=== PATIENT | male | born 1965 | race Caucasian/White ===

== ENCOUNTER 2018-01-28 03:13 | Inpatient (IN) | payer OTHER ==
[~2018-01-28] VITALS: Ht 177.8 cm; Wt 65.0 kg
[~2018-01-28 03:13] MED LIST: ALBU2.5V5 INH; ALBU90I INH; ALBU90OI INH; FLUSAL2505 IH; FLUSAL2505 INH; HYDACE5 PO; PERM5TC TOP; PRED10 PO; RXHYD5325 PO; TIOT18 INH; VARE1 PO; ZINC15G
[2018-01-28 03:23] LABS: BASOPHILS PERCENT AUTO 1 % (0-2); EOSINOPHILS ABSOLUTE AUTO 0.56 K/mm3 (0.00-0.68); EOSINOPHILS PERCENT AUTO 6 % (0-6); Hematocrit 42.2 % (37.0-53.0); Hemoglobin 14.1 g/dL (13.5-17.5); IMMATURE GRAN ABSOLUTE AUTO 0.02 K/mm3 (0.00-0.10); IMMATURE GRAN PERCENT AUTO 0 % (0-1); LYMPHOCYTES PERCENT AUTO 44 % (21-46); MONOCYTES ABSOLUTE AUTO 0.87 K/mm3 (0.16-1.47); MONOCYTES PERCENT AUTO 10 % (4-13); Mean Corpuscular HGB 33.3 pg (26.0-34.0); Mean Corpuscular HGB Conc 33.4 g/dL (31.5-36.5); Mean Corpuscular Volume 100 fL (80-100); Mean Platelet Volume 9.8 fL (9.1-12.4); NEUTROPHILS ABSOLUTE AUTO 3.46 K/mm3 (1.96-9.15); NEUTROPHILS PERCENT AUTO 39 % (41-73); Platelet Count 229 K/mm3 (150-400); RDW Coefficient Variation 12.8 % (11.7-14.2); RDW Standard Deviation 47.1 fL (35.1-46.3); Red Blood Cell Count 4.23 M/mm3 (4.30-5.90); White Blood Cell Count 8.91 K/mm3 (4.00-11.30)
[2018-01-28 03:27] LABS: PCO2 Arterial 53.7 mmHg (35-45); PO2 Arterial 77.7 mmHg (80-100); pH Blood Arterial 7.28 (7.35-7.45)
[2018-01-28] MEDS ORDERED: Ipratr-Albuterol3 ML INH (03:38)
[2018-01-28 03:43] LABS: Alanine Aminotransfer (ALT/SGP 24 U/L (12-78); Albumin, Blood 3.6 g/dL (3.4-5.0); Alk Phos 61 U/L (50-136); Anion Gap 9 mmol/L (6-16); Aspartate Aminotrans (AST/SGOT 27 U/L (12-37); Bilirubin, Total 0.1 mg/dL (0.1-1.0); Blood Urea Nitrogen 9 mg/dL (8-24); Bun/Creatinine Ratio 12.9 (12.0-20.0); CO2, Blood 28 mmol/L (21-32); Calcium, Blood 8.3 mg/dL (8.5-10.1); Chloride, Blood 102 mmol/L (98-108); Globulin, Blood 3.5 g/dL (2.2-4.0); Glomerular Filtration Rate >60 (60-); Glucose, Blood 116 mg/dL (70-99); Sodium, Blood 139 mmol/L (136-145); Total Protein, Blood 7.1 g/dL (6.4-8.2); Troponin I 0.019 ng/mL (0.000-0.040)
[2018-01-28] MEDS ORDERED: METF500 PO (05:52)
[2018-01-28] MEDS ORDERED: FLUO10 PO (05:53)
[2018-01-28 09:15] LABS: PCO2 Arterial 42.3 mmHg (35-45); PO2 Arterial 62.7 mmHg (80-100); pH Blood Arterial 7.39 (7.35-7.45)
[2018-01-29 04:58] LABS: BASOPHILS ABSOLUTE AUTO 0.01 K/mm3 (0.00-0.23); BASOPHILS PERCENT AUTO 0 % (0-2); EOSINOPHILS PERCENT AUTO 0 % (0-6); Hematocrit 40.3 % (37.0-53.0); Hematocrit 40.9 % (37.0-53.0); Hemoglobin 13.7 g/dL (13.5-17.5); Hemoglobin 13.8 g/dL (13.5-17.5); IMMATURE GRAN ABSOLUTE AUTO 0.16 K/mm3 (0.00-0.10); IMMATURE GRAN PERCENT AUTO 1 % (0-1); LYMPHOCYTES ABSOLUTE AUTO 0.55 K/mm3 (0.84-5.20); LYMPHOCYTES PERCENT AUTO 4 % (21-46); MONOCYTES ABSOLUTE AUTO 0.38 K/mm3 (0.16-1.47); MONOCYTES PERCENT AUTO 3 % (4-13); Mean Corpuscular HGB 32.7 pg (26.0-34.0); Mean Corpuscular HGB 32.9 pg (26.0-34.0); Mean Corpuscular HGB Conc 33.5 g/dL (31.5-36.5); Mean Corpuscular HGB Conc 34.2 g/dL (31.5-36.5); Mean Corpuscular Volume 98 fL (80-100); Mean Platelet Volume 10.2 fL (9.1-12.4); Mean Platelet Volume 10.3 fL (9.1-12.4); NEUTROPHILS ABSOLUTE AUTO 13.23 K/mm3 (1.96-9.15); NEUTROPHILS ABSOLUTE AUTO 13.47 K/mm3 (1.96-9.15); NEUTROPHILS PERCENT AUTO 92 % (41-73); NEUTROPHILS PERCENT AUTO 93 % (41-73); Platelet Count 211 K/mm3 (150-400); Platelet Count 225 K/mm3 (150-400); RDW Coefficient Variation 12.7 % (11.7-14.2); RDW Coefficient Variation 12.8 % (11.7-14.2); RDW Standard Deviation 45.5 fL (35.1-46.3); RDW Standard Deviation 45.8 fL (35.1-46.3); Red Blood Cell Count 4.19 M/mm3 (4.30-5.90); White Blood Cell Count 14.27 K/mm3 (4.00-11.30); White Blood Cell Count 14.57 K/mm3 (4.00-11.30)
[2018-01-29 05:07] LABS: Mean Corpuscular Volume 96 fL (80-100)
[2018-01-29 05:24] LABS: Alanine Aminotransfer (ALT/SGP 23 U/L (12-78); Albumin, Blood 3.5 g/dL (3.4-5.0); Albumin/Globulin Ratio 1.1 (0.8-1.8); Alk Phos 54 U/L (50-136); Anion Gap 7 mmol/L (6-16); Aspartate Aminotrans (AST/SGOT 19 U/L (12-37); Bilirubin, Total 0.4 mg/dL (0.1-1.0); Blood Urea Nitrogen 13 mg/dL (8-24); Bun/Creatinine Ratio 21.8 (12.0-20.0); CO2, Blood 27 mmol/L (21-32); Calcium, Blood 9.2 mg/dL (8.5-10.1); Chloride, Blood 102 mmol/L (98-108); Globulin, Blood 3.2 g/dL (2.2-4.0); Glomerular Filtration Rate >60 (60-); Glucose, Blood 157 mg/dL (70-99); Potassium, Blood 4.1 mmol/L (3.5-5.5); Sodium, Blood 136 mmol/L (136-145); Total Protein, Blood 6.7 g/dL (6.4-8.2)
[2018-01-29 05:25] LABS: Anion Gap 7 mmol/L (6-16); Blood Urea Nitrogen 13 mg/dL (8-24); Bun/Creatinine Ratio 21.1 (12.0-20.0); CO2, Blood 27 mmol/L (21-32); Calcium, Blood 9.1 mg/dL (8.5-10.1); Chloride, Blood 101 mmol/L (98-108); Creatinine, Blood 0.62 mg/dL (0.60-1.20); Glomerular Filtration Rate >60 (60-); Glucose, Blood 159 mg/dL (70-99); Potassium, Blood 4.1 mmol/L (3.5-5.5); Sodium, Blood 135 mmol/L (136-145)
[2018-01-30] MEDS ORDERED: PRED20 PO (12:03)
== END 2018-01-30 12:54 | disposition home or self-care (01) | DRG 189 ==
LOC: ER 03:13 → PCU 04:04 → MEDS 05:32 → PCU 05:36 → MEDS 21:43
PROVIDERS: Emergency Medicine; Internal Medicine
PROC: 5A09357 Assistance with Respiratory Ventilation, Less than 24 Consecutive Hours, Continuous Positive Airway Pressure (ICD-10-PCS; principal; 2018-01-28)
DX: J96.01 Acute respiratory failure with hypoxia (principal); J44.1 Chronic obstructive pulmonary disease with (acute) exacerbation; J44.0 Chronic obstructive pulmonary disease with (acute) lower respiratory infection; J20.9 Acute bronchitis, unspecified; F17.200 Nicotine dependence, unspecified, uncomplicated; Z79.51 Long term (current) use of inhaled steroids; Z79.899 Other long term (current) drug therapy
CPT/HCPCS: 36415; 36600; 71045; 80048; 80053; 82803; 84484; 85025; 93005; 93010; 94640; 94644; 94760; 94761; 96374; 99285; J2930

== ENCOUNTER → 2018-06-17 | Outpatient (CLI) | payer OTHER ==
[~2018-06-17] MED LIST changes: +FLUO10 PO; +Ipratr-Albuterol3 ML INH; +METF500 PO; +PRED20 PO
== END | disposition home or self-care (01) ==
LOC: LAB SHORT 12:26 → LAB EV 12:26
DX: R51 Headache (principal)
CPT/HCPCS: 85651; 86140

== ENCOUNTER → 2019-07-26 | Outpatient (CLI) | payer OTHER ==
[2019-07-26 12:34] LABS: BASOPHILS ABSOLUTE AUTO 0.05 K/mm3 (0.00-0.23); BASOPHILS PERCENT AUTO 0 % (0-2); EOSINOPHILS ABSOLUTE AUTO 0.14 K/mm3 (0.00-0.68); EOSINOPHILS PERCENT AUTO 1 % (0-6); Hematocrit 43.2 % (37.0-53.0); Hemoglobin 15.2 g/dL (13.5-17.5); IMMATURE GRAN ABSOLUTE AUTO 0.07 K/mm3 (0.00-0.10); IMMATURE GRAN PERCENT AUTO 1 % (0-1); LYMPHOCYTES ABSOLUTE AUTO 1.75 K/mm3 (0.84-5.20); LYMPHOCYTES PERCENT AUTO 13 % (21-46); MONOCYTES ABSOLUTE AUTO 1.08 K/mm3 (0.16-1.47); MONOCYTES PERCENT AUTO 8 % (4-13); Mean Corpuscular HGB 34.1 pg (26.0-34.0); Mean Corpuscular HGB Conc 35.2 g/dL (31.5-36.5); Mean Corpuscular Volume 97 fL (80-100); Mean Platelet Volume 9.8 fL (9.1-12.4); NEUTROPHILS ABSOLUTE AUTO 10.66 K/mm3 (1.96-9.15); NEUTROPHILS PERCENT AUTO 78 % (41-73); Platelet Count 284 K/mm3 (150-400); RDW Coefficient Variation 12.7 % (11.7-14.2); RDW Standard Deviation 45.6 fL (35.1-46.3); Red Blood Cell Count 4.46 M/mm3 (4.30-5.90); White Blood Cell Count 13.75 K/mm3 (4.00-11.30)
[2019-07-26 12:44] LABS: Alanine Aminotransfer (ALT/SGP 31 U/L (12-78); Albumin, Blood 3.8 g/dL (3.4-5.0); Alk Phos 107 U/L (40-126); Anion Gap 8 mmol/L (6-16); Aspartate Aminotrans (AST/SGOT 36 U/L (12-37); Bilirubin, Total 0.4 mg/dL (0.1-1.0); Blood Urea Nitrogen 8 mg/dL (8-24); Bun/Creatinine Ratio 9.9 (12.0-20.0); CO2, Blood 29 mmol/L (21-32); Calcium, Blood 9.5 mg/dL (8.5-10.1); Chloride, Blood 98 mmol/L (98-108); Creatinine, Blood 0.81 mg/dL (0.60-1.20); Globulin, Blood 3.9 g/dL (2.2-4.0); Glomerular Filtration Rate >60 (60-); Glucose, Blood 83 mg/dL (70-99); Potassium, Blood 4.8 mmol/L (3.5-5.5); Sodium, Blood 135 mmol/L (136-145); Total Protein, Blood 7.7 g/dL (6.4-8.2)
[2019-07-26 12:45] LABS: Troponin I <0.017 ng/mL (0.000-0.040)
== END | disposition home or self-care (01) ==
LOC: LAB SHORT 12:26 → LAB EV 12:26
PROVIDERS: Physician Assistant
DX: R07.89 Other chest pain (principal)
CPT/HCPCS: 80053; 84484; 85025

== ENCOUNTER 2024-09-09 12:07 | Emergency (ER) | payer OTHER ==
[~2024-09-09] VITALS: Ht 177.8 cm; Wt 59.9 kg
[2024-09-09] MEDS ORDERED: DiphenhydrAMINE HCl 50 MG/ML 1ML Vial IV ONE (12:35)
[2024-09-09] MEDS ORDERED: Famotidine 10 MG/ML 2ML Vial IV ONE (12:35)
[2024-09-09] MEDS ORDERED: Dexamethasone Sod Phos 10 MG/ML 1ML VIAL IV ONE (12:35)
[2024-09-09] MEDS ORDERED: BENADRYL25 M1 PO (13:20)
[2024-09-09] MEDS ORDERED: PRED20 PO (13:20)
[2024-09-09] MEDS ORDERED: FAMO20 PO (13:20)
[2024-09-09 13:33] VITALS: BP 109/86
[2024-09-09] MEDS ORDERED: EPIPEN0.3 MG/0.1 IM (13:37)
== END 2024-09-09 13:55 | disposition home or self-care (01) ==
LOC: ER 12:07
DX: T78.40XA Allergy, unspecified, initial encounter (principal); J44.89 Other specified chronic obstructive pulmonary disease; Z87.891 Personal history of nicotine dependence; Z79.52 Long term (current) use of systemic steroids; Z79.51 Long term (current) use of inhaled steroids; Z79.899 Other long term (current) drug therapy
CPT/HCPCS: 96374; 96375; 99283-25; J1100; J1200

== ENCOUNTER → 2025-05-24 | Outpatient (CLI) | payer OTHER ==
[~2025-05-24] MED LIST changes: +BENADRYL25 M1 PO; +EPIPEN0.3 MG/0.1 IM; +FAMO20 PO
[2025-05-24 13:35] LABS: Anion Gap 12.0 mmol/L (3-11); Blood Urea Nitrogen 15.0 mg/dL (8-24); CO2, Blood 26.0 mmol/L (21-32); Calcium, Blood 9.5 mg/dL (8.5-10.1); Chloride, Blood 94.0 mmol/L (98-108); Creatinine, Blood 0.54 mg/dL (0.60-1.20); Glucose, Blood 142.0 mg/dL (70-99); Potassium, Blood 4.1 mmol/L (3.5-5.5); Sodium, Blood 128.0 mmol/L (136-145)
== END ==
LOC: LAB 12:39 → LAB SHORT 12:39
PROVIDERS: Internal Medicine Hematology & Oncology
DX: C34.02 Malignant neoplasm of left main bronchus (principal)
CPT/HCPCS: 80048

== ENCOUNTER 2025-07-16 17:16 | Inpatient (IN) | payer OTHER ==
[~2025-07-16] VITALS: Ht 167.6 cm; Wt 61.2 kg
[~2025-07-16 17:16] MED LIST changes: +SPIRIVA RESPIMAT4 G3 INH; -TIOT18 INH
[2025-07-16] MEDS ORDERED: NS 1,000 ML IV SCH (17:35)
[2025-07-16 18:26] LABS: BASOPHILS ABSOLUTE AUTO 0.03 K/mm3 (0.00-0.23); BASOPHILS PERCENT AUTO 1 % (0-2); EOSINOPHILS ABSOLUTE AUTO 0.23 K/mm3 (0.00-0.68); EOSINOPHILS PERCENT AUTO 5 % (0-6); Hematocrit 27.7 % (37.0-53.0); Hemoglobin 9.7 g/dL (13.5-17.5); IMMATURE GRAN ABSOLUTE AUTO 0.02 K/mm3 (0.00-0.10); IMMATURE GRAN PERCENT AUTO 0 % (0-1); LYMPHOCYTES ABSOLUTE AUTO 0.28 K/mm3 (0.84-5.20); LYMPHOCYTES PERCENT AUTO 6 % (21-46); MONOCYTES ABSOLUTE AUTO 0.85 K/mm3 (0.16-1.47); MONOCYTES PERCENT AUTO 17 % (4-13); Mean Corpuscular HGB Conc 35.0 g/dL (31.5-36.5); Mean Corpuscular Volume 92 fL (80-100); NEUTROPHILS ABSOLUTE AUTO 3.60 K/mm3 (1.96-9.15); NEUTROPHILS PERCENT AUTO 72 % (41-73); NRBC ABSOLUTE 0.00 K/mm3 (0.00-0.02); NRBC Auto 0.0 /100 WBC (0.0-0.2); Platelet Count 245 K/mm3 (150-400); RDW Coefficient Variation 17.2 % (11.7-14.2); RDW Standard Deviation 56.5 fL (35.1-46.3)
[2025-07-16 18:46] LABS: Alanine Aminotransfer (ALT/SGP 19.0 U/L (12-78); Albumin, Blood 2.9 g/dL (3.4-5.0); Albumin/Globulin Ratio 0.8 (0.8-1.8); Anion Gap 10.0 mmol/L (3-11); Aspartate Aminotrans (AST/SGOT 14.0 U/L (12-37); Bilirubin, Total 0.5 mg/dL (0.1-1.0); Blood Urea Nitrogen 12.0 mg/dL (8-24); CO2, Blood 27.0 mmol/L (21-32); Calcium, Blood 9.2 mg/dL (8.5-10.1); Chloride, Blood 95.0 mmol/L (98-108); Creatinine, Blood 0.5 mg/dL (0.60-1.20); Globulin, Blood 3.8 g/dL (2.2-4.0); Glucose, Blood 127.0 mg/dL (70-99); Potassium, Blood 3.3 mmol/L (3.5-5.5); Sodium, Blood 129.0 mmol/L (136-145); Total Protein, Blood 6.7 g/dL (6.4-8.2)
[2025-07-16 18:47] LABS: Magnesium, Blood 1.7 mg/dL (1.6-2.4); Phosphorus, Blood 2.9 mg/dL (2.5-4.9)
[2025-07-16] MEDS ORDERED: CefTRIAXone Sodium 1,000 MG in NS 100 ML IV ONE (22:05)
[2025-07-16] MEDS ORDERED: Ipratropium/Albuterol SulF 2.5-0.5MG/3 ML Amp INH ONE (22:45)
[2025-07-16] MEDS ORDERED: Magnesium Hydroxide Conc 10 ML UDC PO PRN (23:15)
[2025-07-16] MEDS ORDERED: FLU VACC TS2025-26(6MOS UP)/PF 45 MCG/0.5 ML SYRINGE IM SCH (23:15)
[2025-07-16] MEDS ORDERED: Ipratropium/Albuterol SulF 2.5-0.5MG/3 ML Amp INH SCH (23:20)
[2025-07-16 23:27] LABS: IMMATURE RETIC FRACTION 19.80 % (2.3-16.0); RETIC HGB EQUIVALENT 28.70 pg (28.20-36.60); RETICULOCYTE ABSOLUTE 0.0972 M/mm3 (0.0200-0.1100); RETICULOCYTE COUNT PERCENT 3.22 % (0.50-2.50)
[2025-07-17] VITALS (7 sets, daily range): BP systolic 122–138; BP diastolic 76–93
[2025-07-17 00:41] LABS: Ferritin, Serum 752.0 ng/mL (26-388); Total Iron Binding Capacity 158.0 ug/dL (250-450)
[2025-07-17 01:54] LABS: Influenza A/2009-H1 Not Detected (NOT DETECT); SARS-Cov-2 (COVID-19), BioFire Not Detected (NOT DETECT)
[2025-07-17] MEDS ORDERED: OXYCONTIN10 MG PO (02:23)
[2025-07-17] MEDS ORDERED: SENN187 PO (02:23)
--- NOTE | 2025-07-17 03:25 | NUR ---
ARRIVAL TO PCU PT ARRIVED TO PCU ON A GURNEY FROM THE ED AT AROUND 0115. PT ARRIVED AND WAS ABLE TO TRANSFER TO PCU BED. ON 2L NC ON ARRIVAL SATTING >93% ARRIVED IN NO ACUTE DISTRESS, BREATHING EVEN AND UNLABORED. DURING HIS ASSESMENT PT DID HOWEVER DESAT TO THE LOW 80'S AND O2 WAS TURNED UP TO 7L FOR SOMETIME, PT SEEMS TO TAKE QUITE SOMETIME TO RECOVER. PT ALSO NOTED TO HAVE A PRODUCTIVE COUGH W/ THIN WHITE SPUTUM. TELE IN PLACE SHOWING SINUS TACH ON THE MONTIOR. PT DENIES CHEST PAIN AND PRESSURE. BED IN LOW, CALL LIGHT IN REACH.
[2025-07-17] MEDS ORDERED: Albuterol 2.5 MG/3 ML VIAL INH PRN (04:00)
[2025-07-17 04:36] LABS: BASOPHILS ABSOLUTE AUTO 0.03 K/mm3 (0.00-0.23); BASOPHILS PERCENT AUTO 1 % (0-2); EOSINOPHILS ABSOLUTE AUTO 0.22 K/mm3 (0.00-0.68); EOSINOPHILS PERCENT AUTO 5 % (0-6); Hematocrit 23.1 % (37.0-53.0); Hemoglobin 7.9 g/dL (13.5-17.5); IMMATURE GRAN ABSOLUTE AUTO 0.01 K/mm3 (0.00-0.10); IMMATURE GRAN PERCENT AUTO 0 % (0-1); LYMPHOCYTES ABSOLUTE AUTO 0.25 K/mm3 (0.84-5.20); LYMPHOCYTES PERCENT AUTO 6 % (21-46); MONOCYTES ABSOLUTE AUTO 0.77 K/mm3 (0.16-1.47); MONOCYTES PERCENT AUTO 19 % (4-13); Mean Corpuscular HGB Conc 34.2 g/dL (31.5-36.5); Mean Corpuscular Volume 93 fL (80-100); NEUTROPHILS ABSOLUTE AUTO 2.79 K/mm3 (1.96-9.15); NEUTROPHILS PERCENT AUTO 69 % (41-73); NRBC ABSOLUTE 0.00 K/mm3 (0.00-0.02); NRBC Auto 0.0 /100 WBC (0.0-0.2); Platelet Count 209 K/mm3 (150-400); RDW Coefficient Variation 17.0 % (11.7-14.2); RDW Standard Deviation 57.2 fL (35.1-46.3)
[2025-07-17 05:12] LABS: Alanine Aminotransfer (ALT/SGP 15.0 U/L (12-78); Albumin, Blood 2.5 g/dL (3.4-5.0); Albumin/Globulin Ratio 0.9 (0.8-1.8); Anion Gap 9.0 mmol/L (3-11); Aspartate Aminotrans (AST/SGOT 12.0 U/L (12-37); Bilirubin, Total 0.4 mg/dL (0.1-1.0); Blood Urea Nitrogen 8.0 mg/dL (8-24); CO2, Blood 26.0 mmol/L (21-32); Calcium, Blood 8.8 mg/dL (8.5-10.1); Chloride, Blood 100.0 mmol/L (98-108); Creatinine, Blood 0.47 mg/dL (0.60-1.20); Globulin, Blood 2.9 g/dL (2.2-4.0); Glucose, Blood 113.0 mg/dL (70-99); Potassium, Blood 3.8 mmol/L (3.5-5.5); Sodium, Blood 131.0 mmol/L (136-145); Total Protein, Blood 5.4 g/dL (6.4-8.2)
[2025-07-17] MEDS ORDERED: Piperacillin/Tazobactam Sod 3.375 GM in NS 100 ML IV SCH (07:00)
[2025-07-17] MEDS ORDERED: Iron Dextran 50 MG / ML 2ML Vial IV ONE (09:00)
[2025-07-17] MEDS ORDERED: Enoxaparin 40 MG/0.4 ML SYR SC SCH (09:00)
[2025-07-17] MEDS ORDERED: Lactobacil 2-S.Thermo-Bifido 1 1 Cap PO SCH (09:00)
[2025-07-17] MEDS ORDERED: Iron Dextran 975 MG in NS 250 ML IV ONE (10:00)
--- NOTE | 2025-07-17 10:30 | NUR ---
REPORT FROM TOBIN RN, THIS RN TO ASSUME CARE OF PT PT RESTING ON BED IN FOWLERS POSITION. PT AOX4 AND USES CALL LIGHT APPROPRIATLEY. PT REPORTS SOB, AND SENSATION THAT "SOMETHING IS RATTLING AROUND IN THERE". INSPIRATORY/EXPIRATORY WHEEZING HEARD, RT CALLED FOR BREATHING TX. PT REPORTS SOME RELIEF AFTER. PT EDUCATED ON USE OF FLUTTER VALVE AND VERBALIZED UNDERSTANDING. SINUS TACH ON MONITOR, RATE OF 110S. BP STABLE W/ MAP>65. PT AFEBRILE. URINAL W/ IN REACH- PT STS HE PREFERS BSC AND WILL CALL WHEN NEEDED. PT DENIES PAIN AT THIS TIME OR FURTHER NEEDS. PLAN OF CARE ONGOING
[2025-07-17] MEDS ORDERED: Ipratropium/Albuterol SulF 2.5-0.5MG/3 ML Amp INH SCH (11:10)
[2025-07-17] MEDS ORDERED: Ergocalciferol 50000 Intn'l Units PO SCH (12:25)
--- NOTE | 2025-07-17 13:19 | NUR ---
TRANSFER SUMMARY REPORT TO PRERNA PIERCE, PT TAKEN TO ROOM 305 BY THIS RN VIA W/C. PT BELONGINGS AND CHART W/ PT.
--- NOTE | 2025-07-17 17:10 | NUR ---
SHIFT SUMMARY: PT ARRIVED FROM PCU TO [facility] AROUND 1510. PT ARRIVED A&OX4. FOLLOWS COMMANDS AND ANSWERS QUESTIONS APPROPRIATELY. PT DID HAVE SOB WITH EXERTION WHEN TRANSFERING TO BED. PT ON 2L NC. APPEARS TO BE SOB WHICH HE STATES IS NOT NEW. PT HAS A PRODUCTIVE COUGH AND GETS SOB, HYPOXIC AND TACHYCARDIC WITH COUGHING. VSS. MAP >65. DENIES ANY CP, PRESSURE OR TIGHTNESS. NO OTHER SIGNIFICANT EVENTS HAPPENED DURING THIS SHIFT. WILL CONTINUE TO CARE FOR PT TILL END OF SHIFT.
[2025-07-17] MEDS ORDERED: NS 250 ML IV PRN (17:30)
[2025-07-18 00:01] VITALS: BP 131/84
[2025-07-18 04:42] VITALS: BP 135/82
[2025-07-18 04:57] LABS: Hematocrit 23.6 % (37.0-53.0); Hemoglobin 8.1 g/dL (13.5-17.5); Mean Corpuscular HGB Conc 34.3 g/dL (31.5-36.5); Mean Corpuscular Volume 93 fL (80-100); NRBC ABSOLUTE 0.00 K/mm3 (0.00-0.02); NRBC Auto 0.0 /100 WBC (0.0-0.2); Platelet Count 231 K/mm3 (150-400); RDW Coefficient Variation 16.9 % (11.7-14.2); RDW Standard Deviation 57.0 fL (35.1-46.3)
[2025-07-18 05:24] LABS: Anion Gap 7.0 mmol/L (3-11); Blood Urea Nitrogen 6.0 mg/dL (8-24); CO2, Blood 27.0 mmol/L (21-32); Calcium, Blood 8.7 mg/dL (8.5-10.1); Chloride, Blood 98.0 mmol/L (98-108); Creatinine, Blood 0.48 mg/dL (0.60-1.20); Glucose, Blood 99.0 mg/dL (70-99); Potassium, Blood 3.4 mmol/L (3.5-5.5); Sodium, Blood 129.0 mmol/L (136-145)
--- NOTE | 2025-07-18 07:12 | NUR ---
Shift Summary Pt had one medium sized BM. He was up to BSC, but getting up and back in bed caused him to become dyspnic and painful breathing. Called RT who did a breathing treatment. Medicated for pain per EMAR. Pt slept well t/o most of the night. He is on 3L O2 NC and cont. O2 monitor, he only desatted when getting up the one time to BSC. On tele running sinus tach. He is AOx4, cooperative with care.
[2025-07-18 07:57] VITALS: BP 108/81
[2025-07-18] MEDS ORDERED: BREYNA 160-4.10.3 GM INH (12:01)
[2025-07-18 12:40] VITALS: BP 111/76
[2025-07-18 16:27] VITALS: BP 133/89
--- NOTE | 2025-07-18 19:43 | NUR ---
PATIENT SUMMARY- PATIENT'S PAIN WAS UNCONTROLLED AND WAS CAUSING HIM ANXIETY AND FEELINGS OF SOB. PATIENT REMINDED TO CALL FOR PAIN MGMT IF IT IS FORGOTTEN. GIVEN ON TIME DURING THIS RNS SHIFT AND HE WAS IN MUCH BETTER SPIRITS. APPIETE BETTER. NEW IV STARTED DUE TO THE FIRST ONE BEING ON THE BEND OF THE ARM. TOLERATED ALL OTHER INTERVENTIONS DURING SHIFT.
[2025-07-18 21:24] VITALS: BP 133/82
[2025-07-19 00:26] VITALS: BP 130/78
[2025-07-19 04:51] VITALS: BP 115/73
--- NOTE | 2025-07-19 04:51 | NUR ---
SHIFT SUMMARY: PT AOX4 AND RESTING IN BED THROUGH OUT THIS SHIFT. MEDICATED PER EMAR. NO ACUTE CHANGES THIS SHIFT.
[2025-07-19 05:03] LABS: Hematocrit 24.8 % (37.0-53.0); Hemoglobin 8.6 g/dL (13.5-17.5); Mean Corpuscular HGB Conc 34.7 g/dL (31.5-36.5); Mean Corpuscular Volume 93 fL (80-100); NRBC ABSOLUTE 0.00 K/mm3 (0.00-0.02); NRBC Auto 0.0 /100 WBC (0.0-0.2); Platelet Count 272 K/mm3 (150-400); RDW Coefficient Variation 16.8 % (11.7-14.2); RDW Standard Deviation 55.5 fL (35.1-46.3)
[2025-07-19 05:28] LABS: Anion Gap 7.0 mmol/L (3-11); Blood Urea Nitrogen 6.0 mg/dL (8-24); CO2, Blood 30.0 mmol/L (21-32); Calcium, Blood 9.0 mg/dL (8.5-10.1); Chloride, Blood 96.0 mmol/L (98-108); Creatinine, Blood 0.46 mg/dL (0.60-1.20); Glucose, Blood 189.0 mg/dL (70-99); Potassium, Blood 3.9 mmol/L (3.5-5.5); Sodium, Blood 129.0 mmol/L (136-145)
[2025-07-19 08:00] VITALS: BP 131/85
[2025-07-19 11:10] VITALS: BP 128/88
--- NOTE | 2025-07-19 11:23 | NUR ---
PALLIATIVE CARE VISIT: CONSULT RECEIVED FOR AD/POLST. PER PRIMARY RN PT WANTS TO DISCUSS WHAT DNR STATUS MEANS. REVIEWED MEDICAL RECORD. NO POLST ON FILE. 0945 MET WITH PT IN HIS ROOM. PT IS AGREEABLE AND ABLE TO DISCUSS CODE STATUS. PT EDUCATED ON WHAT DNR MEANS. ALSO RECOMMENDED PT TO COMPLETE A ADVANCE DIRECTIVE. HE IS AGREEABLE. PT REQUESTS WE HAVE ANOTHER MEETING WITH HIS PRESENT. SHE WILL NOT BE ABLE TO BE PRESENT FOR MEETING UNTIL TOMORROW. SHE IS WATCHING HER GRANDCHILD TODAY. PLAN IS TO MEET TOMORROW ONCE SHE IS AVAILABLE. TIME TBD.
--- NOTE | 2025-07-19 19:10 | NUR ---
SHIFT SUMMARY- PALLIATIVE CARE CONSULT ORDERED TODAY TO DISCUSS ADVANCE CARE PLANNING AND THE POTENTIAL FOR A DNR ORDER. PALLIATIVE REPRESENTIVE DID EDUCATE THE PATIENT IN THE ROOM BUT HE WOULD LIKE TO WAIT FOR HIS FAMILY TO BE PRESENT BEFORE MAKING THESE DECISIONS. PALLIATIVE WILL FOLLOW UP. PATIENT IS STRUGGLING WITH APPETITE BUT WAS ABLE TO EAT HOMEMADE CHICKEN HIS GIRLFRIEND BROUGHT FOR HIM. PAIN CONTINUES TO BE A PROBLEM BUT IS CONTROLLED WITH SCHEDULED MEDICATIONS PER EMR. PATIENT WAS ABLE TO AMBULATE TO THE BATHROOM WITH SBA BUT DOES DESTAT AND HAVE TACHYCARDIA FOR A BIT WHEN HE RETURNS.
[2025-07-19 19:37] VITALS: BP 138/74
[2025-07-20 00:17] VITALS: BP 129/81
[2025-07-20 04:22] VITALS: BP 124/75
--- NOTE | 2025-07-20 04:39 | NUR ---
NO ACUTE CHANGES DURING SHIFT. PATIENT ALERT AND ORIENTED X4, ABLE TO MAKE NEEDS KNOWN. PATIENT ABLE TO TURN HIMSELF IN BED. PATIENT MEDICATED FOR PAIN- SEE EMAR. PATIENT ON 4 L NC WITH CONTINUOUS PULSE OX IN PLACE. TELE BOX IN PLACE-RUNNING NSR/SINUS TACH. IV ANTIBIOTICS GIVEN. BED IN LOW POSITION WITH WHEELS LOCKED. CALL LIGHT WITHIN REACH
[2025-07-20 07:36] VITALS: BP 119/82
[2025-07-20 11:18] VITALS: BP 124/77
[2025-07-20] MEDS ORDERED: LORazepam 2 MG/ML 1ML Injection IV PRN ×2 (14:30→17:50)
[2025-07-20 15:35] VITALS: BP 130/84
--- NOTE | 2025-07-20 17:47 | NUR ---
palliative care visit: met with pt discuss code status. could not be present as planned but pt agreeable to discussing without her present at this time. pt educated on cpr vs dnr measures, risks vs benefits. pt wants to be DNR selective treatment. polst completed and signed by pt and md. polst copy sent to registry and copy placed on chart. original given back to pt.
[2025-07-20] MEDS ORDERED: BUDESONIDE FORMOTEROL INH SCH (17:50)
--- NOTE | 2025-07-20 17:59 | NUR ---
SHIFT SUMMARY- PATIENT CONSULTED WITH PULMONOLOGY TODAY, DIAGNOSIS, PROGNOSIS AND DISCHARGE PLAN ARE DISCUSSED. PULMONOLGY WOULD LIKE PATIENT USING HIS HOME INHALERS WHILE HERE. THEY ARE PRESENT AND SENT TO PHARMACY FOR PROPER CHARTING. ORDER FOR PRN ATIVAN IS ORDERED BY PULM TO MANAGE PATIENTS ANXIETY WHEN FEEL SOB.
[2025-07-20] MEDS ORDERED: Tiotropium Bromide 2.5 MCG/ACT MIST INHAL (10 ACT/4 GM) INH SCH (18:00)
[2025-07-20 20:03] VITALS: BP 130/82
[2025-07-21 00:15] VITALS: BP 137/84
[2025-07-21 04:38] VITALS: BP 161/94
--- NOTE | 2025-07-21 04:45 | NUR ---
NOTIFIED BY RHEUMATOLOGY NURSE THAT PT HAD FALL IN BATHROOM. PT ASSESSED AND SAID THAT THEY HAD BUMPED THE LEFT SIDE OF HEAD ON SINK, BUT NOT VERY HARD AND GRAZED IT. NEURO CHECKS WNL. BP SLIGHTLY ELEVATED BUT VS WNL. PT SUSTAINED SKIN TEAR ON LFA THAT WAS CLEANED WITH WOUND CARE FAMILY ADVOCATE AND DRESSED WITH MEDIPORE WOUND CARE DRESSING. HOSPITALIST NOTIFIED OF INCIDDENT AND GAVE ORDERS TO CONTINUE TO MONITOR PT NEURO STATUS AND TO NOTIFY IF ANY CHANGES IN LOC.
[2025-07-21 04:48] VITALS: BP 161/94
[2025-07-21] MEDS ORDERED: Ipratropium/Albuterol SulF 2.5-0.5MG/3 ML Amp INH SCH (05:08)
--- NOTE | 2025-07-21 05:48 | NUR ---
SHIFT SUMMARY NOC PT A/O X 4. PLEASANT AND COOPERATIVE WITH CARE. VSS. PT REMAINS ON 4L/NC TO MAINTAIN SPO2 >92% AND REQUIRES 5-6L FOR EXERTION, AND IS BEING MONITORED VIA CONTINOUS PULSE OXIMETRY. LUNG SOUNDS IN EFRAÍN ARE STILL ABSENT, BUT DIMINISHED WITH EXPIRATORY WHEEZES IN LLL. IV STEROIDS AND IV ABX PER EMAR, AND ATIVAN FOR ANXIETY PRN. PT ON TELE SINUS RHYTHM IN 90'S. PT HAS POWERGLIDE IN MAKSIM.PT HAD UNWITNESSED FALL IN BATHROOM WHERE THEY SAID THAT THEY ACCIDENTLALLY FELL AND GRAZED HEAD ON SINK ON WAY DOWN AND ALSO SUSTAINED LFA SKIN TEAR. PT NEURO AND VS WNL, HOSPITALIST CAME TO SEE PT AND DETERMINED THAT HEAD CT NOT WARRANTED AT THIS TIME. PT WILL NOT BE GOING TO SNF AND WILL REQUIRE HOME O2 EVALUATION PRIOR TO DISCHARGE TO DETERMAINE O2 NEEDS. PT CURRENTLY RESTING WITH BED IN LOWEST POSITION, AND CALL LIGHT WITHIN REACH.
[2025-07-21 06:09] LABS: Hematocrit 26.0 % (37.0-53.0); Hemoglobin 8.8 g/dL (13.5-17.5); Mean Corpuscular HGB Conc 33.8 g/dL (31.5-36.5); Mean Corpuscular Volume 95 fL (80-100); NRBC ABSOLUTE 0.00 K/mm3 (0.00-0.02); NRBC Auto 0.0 /100 WBC (0.0-0.2); Platelet Count 286 K/mm3 (150-400); RDW Coefficient Variation 17.5 % (11.7-14.2); RDW Standard Deviation 58.2 fL (35.1-46.3)
[2025-07-21 06:28] LABS: Anion Gap 6.0 mmol/L (3-11); Blood Urea Nitrogen 11.0 mg/dL (8-24); CO2, Blood 35.0 mmol/L (21-32); Calcium, Blood 9.1 mg/dL (8.5-10.1); Chloride, Blood 96.0 mmol/L (98-108); Creatinine, Blood 0.4 mg/dL (0.60-1.20); Glucose, Blood 151.0 mg/dL (70-99); Potassium, Blood 3.9 mmol/L (3.5-5.5); Sodium, Blood 133.0 mmol/L (136-145)
[2025-07-21 07:34] VITALS: BP 133/89
[2025-07-21 10:17] LABS: pH Blood Arterial 7.45 (7.35-7.45)
[2025-07-21 16:42] VITALS: BP 138/95
[2025-07-21] MEDS ORDERED: Albuterol 2.5 MG/3 ML VIAL INH SCH (17:20)
--- NOTE | 2025-07-21 17:58 | NUR ---
SHIFT SUMMARY PATIENT IS A&OX4. ON 4L OF O2 VIA NASAL CANNULA. BIPAP IN ROOM, RT CONSULTED. BASELINE IS RA. PAIN IN UPPER LEFT CHEST, LOCATION OF LUNG CARCINOMA, PAIN MANAGED WITH 10MG PO NORCO Q6HR. DEVIATING FROM THE 6HR FREQUENCY DOES CAUSE INCREASE IN PAITENT PAIN. HE IS AMBULATORY WITH SBA. HE IS CURRENTLY SITTING UP IN BED, IV ANTIBIOTICS RUNNING. BED IN LOW POSITION, CALL LIGHT IN REACH.
[2025-07-21 19:56] VITALS: BP 148/96
[2025-07-22] VITALS (7 sets, daily range): BP systolic 129–160; BP diastolic 77–101
--- NOTE | 2025-07-22 05:04 | NUR ---
SHIFT SUMMARY PT A&OX4, ON 4L O2 NC, TOLERATED SOME PO, VOIDED, AND PAIN WAS MANAGED PER EMAR. PT CONT TO BE TACHY, BUT ASYMPTOMATIC. TELE IN PLACE. PT TOLERATED BIPAP T/O SHIFT. IV ABX INFUSED PER ORDER. NO OTHER ACUTE CHANGES THIS SHIFT. CALL LIGHT WITHIN REACH AND PT ABLE TO MAKE NEEDS KNOWN.
[2025-07-22] MEDS ORDERED: LORazepam 2 MG/ML 1ML Injection IV PRN (08:00)
[2025-07-22] MEDS ORDERED: Polyethylene Glycol 3350 17 gm PO PRN (08:00)
--- NOTE | 2025-07-22 17:49 | NUR ---
SHIFT SUMMARY A&OX4. CONTINUES TO BE ON 4L OF O2 BY THE NASAL CANNULA. MEDICATING FOR PAIN Q6 ROUND THE CLOCK FOR CANCER PAIN. CLIENT RENEWAL SPECIALIST CONSULTED TODAY, ADDED GABAPENTIN FOR PAIN, AND SERTRALINE FOR SUSTAINED MANAGEMENT OF INCREASING ANXIETY RELATED TO AIR HUNGER. PATIENT WILL NEED HOME O2 EVALUATION. HE IS STILL A SBA TO BATHROOM, HOWEVER, HAS UTILIZED THE URINAL TODAY. HE CALLS APPROPRIATELY, BED IS LOW, CALL LIGHT IN REACH.
[2025-07-22] MEDS ORDERED: Docusate Sodium/Senna 1 Tab PO SCH (21:00)
[2025-07-23 05:05] VITALS: BP 126/102
--- NOTE | 2025-07-23 05:53 | NUR ---
SHIFT SUMMARY PATIENT IS ALERT AND ORIENTED. PATIENT HAS HAD NO ACUTE EVENTS THIS SHIFT. VITAL SIGNS REVIEWED. PATIENT HAS HAD NO COMPLAINTS OF SOB, NAUSEA, VOMITTING. PATIENT HAS REPORTED CHRONIC PAIN THIS SHIFT. PATIENT HAS BEEN ON 4L THIS SHIFT WITH NO INCIDENTS. BED IN LOCKED AND LOWEST POSITION. CALL LIGHT IN PLACE.
[2025-07-23 07:54] VITALS: BP 143/84
[2025-07-23 11:41] VITALS: BP 121/91
[2025-07-23 15:36] VITALS: BP 143/98
--- NOTE | 2025-07-23 17:07 | NUR ---
SUMMARY- AAOX4. PT ON 3L NC CONTINUOUS THIS SHIFT. PT'S PAIN WELL CONTROLLED WITH EMAR PAIN MEDS. PT DID NOT NEED ATIVAN THIS SHIFT. X1 ASSIST TO THE BATHROOM. NO ACUTE EVENTS THIS SHIFT.
[2025-07-23 19:33] VITALS: BP 144/81
[2025-07-23 23:54] VITALS: BP 138/86
[2025-07-24 03:42] VITALS: BP 136/86
[2025-07-24 05:44] LABS: Hematocrit 29.3 % (37.0-53.0); Hemoglobin 9.9 g/dL (13.5-17.5); Mean Corpuscular HGB Conc 33.8 g/dL (31.5-36.5); Mean Corpuscular Volume 95 fL (80-100); NRBC ABSOLUTE 0.00 K/mm3 (0.00-0.02); NRBC Auto 0.0 /100 WBC (0.0-0.2); Platelet Count 377 K/mm3 (150-400); RDW Coefficient Variation 18.3 % (11.7-14.2); RDW Standard Deviation 60.8 fL (35.1-46.3)
--- NOTE | 2025-07-24 06:15 | NUR ---
SHIFT SUMMARY NO SIGNIFICANT CHANGE THIS EVENING. TITRATED DOWN FROM 3L TO 1L NC, MAINTAINS SPO2 >95%. BASELINE IS RA. LIKELY WILL REQUIRE HOME O2 EVAL IF PENDING DISPOSITION. PATENT POWERGLIDE IN MAKSIM. CHRONIC CHEST PAIN RELATED TO EFRAÍN LUNG CANCER MEDICATED PER EMAR. PT REMAINS NSR TO ST AT 90S-100S ON TELEMETRY. A&OX4. PT REMAINS IN BED, REMAINS 1 PERSON ASSIST WITH GAIT BELT. 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
[2025-07-24 06:16] LABS: Albumin, Blood 2.7 g/dL (3.4-5.0); Anion Gap 9 mmol/L (3-11); Blood Urea Nitrogen 12 mg/dL (8-24); CO2, Blood 33 mmol/L (21-32); Calcium, Blood 9.1 mg/dL (8.5-10.1); Chloride, Blood 92 mmol/L (98-108); Creatinine, Blood 0.49 mg/dL (0.60-1.20); Glucose, Blood 90 mg/dL (70-99); Magnesium, Blood 2.2 mg/dL (1.6-2.4); Phosphorus, Blood 3.2 mg/dL (2.5-4.9); Potassium, Blood 3.6 mmol/L (3.5-5.5); Sodium, Blood 130 mmol/L (136-145)
[2025-07-24 07:51] VITALS: BP 122/83
[2025-07-24 15:06] VITALS: BP 97/82
--- NOTE | 2025-07-24 18:32 | NUR ---
END OF SHIFT NOTE PATIENT IND IN BED, STANDBY ASSIT TO BATHROOM OR OTHER NEEDS. USES CALL LIKE TO MAKE NEEDS KNOWN. PAIN MANAGEMENT DISCUSSED WITH PATIENT, SCHEDULING OF MEDICATIONS AND TO ASK QUESTIONS WHEN NEED BE. PATIENT VERBALIZED UNDERSTANDING. DR NOONAN IN TO SEE PATIENT TODAY, DISCUSSED D/C, POSSIBLE WEDNESDAY OR WEDNESDAY, PATIENT IS CONCERNED ABOUT O2 SET UP AT HOME. SHARED SOME VERBAL INFORMATION ABOUT [facility]. PATIENT STATES IS AT WORK NEXT TWO DAYS SO WEDNESDAY D/C WOULD BE EASIEST. NO OTHER CONERNS FOR TODAY.
[2025-07-24 20:10] VITALS: BP 103/86
[2025-07-25 03:35] VITALS: BP 129/89
--- NOTE | 2025-07-25 05:23 | NUR ---
SHIFT SUMMARY TITRATED TO 2L NC, SPO2 REMAINS >=94% ON CONT. PULSE OX. INCREASING EXPECTORATION OF SPUTUM WITH BREATHING TX, GUAFENESIN, AND ANTIBIOTIC. PAIN SUBOPTIMALLY CONTROLLED FOR KNOWN EFRAÍN SCC LUNG CANCER. OPTIONS DISCUSSED, PT PREFERS INCREASING ADHERENCE TO HOME REGIMEN OF Q6H PRN ROXICODONE (+ APAP). PT DECLINES USE OF BIPAP AGAIN THIS EVENING. POWERGLIDE REMAINS PATENT VICTOR MANUEL, DOESN'T DRAW. 1-PERSON STANDBY ASSIST. PLAN TO REQUEST HOME O2 EVAL FOR NEW O2 REQUIREMENT, AND LIKELY DISPOSITION HOME FRI WITH MARGARITO. PT INSTRUCTED TO VERIFY ALL HOME MEDS ARE AVAILABLE, AND TO RELAY TO PHYSICIAN IF NEEDING REFILLS BEFORE WEDNESDAY.
[2025-07-25 07:57] VITALS: BP 110/72
[2025-07-25 15:31] VITALS: BP 112/85
--- NOTE | 2025-07-25 16:49 | NUR ---
PATIENT A/OX4, UP WITH SBA IN ROOM. VSS, ON 3LO2 THIS EVENING TO MAINTAIN SATS. HOME O2 EVAL DONE TODAY AND RT STATED PATIENTS SATS DROPPED INTO THE 70'S AND TOOK SOME TIME TO RECOVER ON 5LO2. PLANS TO DO ANOTHER EVAL TOMORROW. PAIN TO L CHEST AND ANXIETY INCREASED WITH ACTIVITY. TYLENOL AND OXYCODONE GIVEN TO TREAT 9/10 PAIN AND 0.5 MG OF ATIVAN GIVEN FOR ANXIETY WITH STATED RELIEF. PLAN IS TO DC HOME TOMORROW OR WEDNESDAY.
[2025-07-25 19:36] VITALS: BP 125/73
[2025-07-26 02:45] VITALS: BP 122/82
--- NOTE | 2025-07-26 05:54 | NUR ---
SHIFT SUMMARY PT A&Ox4. PT C/O PAIN IN L CHEST, MEDICATED PER EMAR WITH GOOD EFFECT. PT ABLE TO SLEEP MOST OF THE NIGHT. REMAINS ON 3L OF OXYGEN DURING THE NIGHT. CPAP IN ROOM BUT PT DECLINED USE. CONTINUES TO COUGH UP THIN, WHITE SECRETIONS. PT DOES DESAT INTO THE 80's WHILE COUGHING BUT QUICKLY RECOVERS. VSS. BED IN LOWEST POSITION AND CALL LIGHT IN REACH.
[2025-07-26 07:30] VITALS: BP 129/83
[2025-07-26] MEDS ORDERED: Tessalon200 MG PO (15:25)
[2025-07-26] MEDS ORDERED: GABA300 PO (15:26)
[2025-07-26] MEDS ORDERED: GUAI600T33 PO (15:26)
[2025-07-26] MEDS ORDERED: SERT25 PO (15:27)
[2025-07-26] MEDS ORDERED: PRED20 PO (15:27)
[2025-07-26] MEDS ORDERED: LORA.5 PO (15:28)
--- NOTE | 2025-07-26 16:20 | NUR ---
PATIENT D/C'D TO HOME WITH FAMILY. DC INSTRUCTIONS AND EDUCATION DISCUSSED WITH PATIENT AND COPY PROVIDED. 3LO2 ON D/C USING PORTABLE TANK, CONCENTRATOR DELIEVERED TO HOME. FWW DELIVERED TO PATIENT. RX MEDICATIONS FAXED TO [facility], HARD SCRIPT FOR ATIVAN GIVEN TO PATIENT. PATIENT DENIES ANY FURTHER QUESTIONS OR CONCERNS.
== END 2025-07-26 16:15 | disposition home or self-care (01) | DRG 871 ==
LOC: ER 17:16 → ERHOLD 17:17 → PCU 23:12 → MEDS 23:12 → PCU 07-17 01:13 → MEDS 07-17 13:09 → ENPENDDIS 07-26 13:14 → MEDS 07-26 16:15
PROVIDERS: Family Medicine; Internal Medicine; Internal Medicine Critical Care Medicine; Student in an Organized Health Care Education/Training Program; ADMIT Internal Medicine
PROC: 3E03329 Introduction of Other Anti-infective into Peripheral Vein, Percutaneous Approach (ICD-10-PCS; 2025-07-16)
PROC: 3E02340 Introduction of Influenza Vaccine into Muscle, Percutaneous Approach (ICD-10-PCS; 2025-07-16)
PROC: 5A09357 Assistance with Respiratory Ventilation, Less than 24 Consecutive Hours, Continuous Positive Airway Pressure (ICD-10-PCS; principal; 2025-07-21)
PROC: 4A033R1 Measurement of Arterial Saturation, Peripheral, Percutaneous Approach (ICD-10-PCS; 2025-07-21)
DX: A41.9 Sepsis, unspecified organism (principal); J18.9 Pneumonia, unspecified organism; J96.01 Acute respiratory failure with hypoxia; E87.1 Hypo-osmolality and hyponatremia; J70.0 Acute pulmonary manifestations due to radiation; J44.0 Chronic obstructive pulmonary disease with (acute) lower respiratory infection; C34.12 Malignant neoplasm of upper lobe, left bronchus or lung; Z66 Do not resuscitate; R65.20 Severe sepsis without septic shock; Z79.891 Long term (current) use of opiate analgesic; R33.9 Retention of urine, unspecified; F12.90 Cannabis use, unspecified, uncomplicated; E87.6 Hypokalemia; E88.09 Other disorders of plasma-protein metabolism, not elsewhere classified; F17.210 Nicotine dependence, cigarettes, uncomplicated; F41.9 Anxiety disorder, unspecified; R53.81 Other malaise; J43.9 Emphysema, unspecified; D50.9 Iron deficiency anemia, unspecified; Z99.81 Dependence on supplemental oxygen; Z79.51 Long term (current) use of inhaled steroids; Z98.890 Other specified postprocedural states; Z79.899 Other long term (current) drug therapy; Z23 Encounter for immunization
CPT/HCPCS: 0202U; 36415; 36600; 71045; 71046; 71260; 80048; 80053; 80069; 82306; 82607; 82728; 82746; 82803; 83540; 83550; 83605; 83735; 84100; 84145; 84443; 85025; 85027; 85045; 87040; 87070; 87205; 93005; 93010; 94640; 94660; 94664; 94760; 94762; 96361; 96365-59; 96375-59; 97110; 97162; 97530; 99285-25; A9270; C1751; G0378; J0456; J0696; J1650; J1750; J2060; J2543; J2919; J7030; J7050; J7120; J7512; Q9967